=== PATIENT | female | born 1950 | race Caucasian/White ===

== ENCOUNTER → 2018-12-12 19:27 | Outpatient (REF) | payer MEDICARE, OTHER, SELFPAY ==
[2018-12-12 19:51] LABS: Add Manual Diff / Slide Review NO; Basophils Absolute Auto 0 /uL (0-100); Basophils Percent Auto 0.6 % (0-2); Eosinophils Absolute Auto 100 /uL (0-450); Hematocrit 42.9 % (36-46); Hemoglobin 14.3 g/dL (12.0-16.0); Lymphocytes Absolute Auto 1500 /uL (1100-4500); Lymphocytes Percent Auto 38.2 % (25-40); Mean Corpuscular HGB Conc 33.4 % (30-36); Mean Corpuscular Hemoglobin 32.6 PG (26-34); Mean Corpuscular Volume 97.6 fL (80-100); Monocytes Absolute Auto 200 /uL (0-900); Monocytes Percent Auto 6.1 % (3-14); Neutrophils Absolute Auto 2100 /uL (1500-7000); Neutrophils Percent Auto 52.1 % (50-75); Platelet Count 224 X10^3/uL (150-400); Red Blood Cell Count 4.39 X10^6/uL (4.0-5.2); Red Cell Distribution Width 13.2 % (11.6-14.8)
[2018-12-12 20:01] LABS: Alanine Aminotransferase 32 IU/L (9-52); Albumin 4.2 g/dL (3.5-5.0); Albumin Globulin Ratio 1.6 (1.0-2.8); Alkaline Phosphatase 59 U/L (38-126); Aspartate Aminotransferase 24 IU/L (14-36); BUN Creatinine Ratio 21.4 (6-22); Bilirubin Total 0.7 mg/dL (0.2-1.3); Blood Urea Nitrogen 15 mg/dL (7-17); Calcium 8.9 mg/dL (8.4-10.2); Carbon Dioxide 28 mmol/L (22-32); Chloride 105 mmol/L (98-107); Cholesterol 225 mg/dL (140-199); Estimated Glomerular Filt Rate > 60.0 mL/min (>60); Globulin 2.7 g/dL (1.7-4.1); Glucose 104 mg/dL (80-110); HDL Cholesterol 58 mg/dL (40-60); HEMOLYSIS < 15 (0-50); LDL Cholesterol Calculated 148 mg/dL (<100); Potassium 4.3 mmol/L (3.4-5.1); Sodium 139 mmol/L (137-145); Total Protein 6.9 g/dL (6.3-8.2); Triglycerides 94 mg/dL (35-150)
== END ==
LOC: LAB 19:27
PROVIDERS: Visit Provider Family Medicine Geriatric Medicine
DX: Z00.00 Encounter for general adult medical examination without abnormal findings (principal); Z13.220 Encounter for screening for lipoid disorders
CPT/HCPCS: 36415; 80053; 80061; 85025

== ENCOUNTER → 2021-05-16 14:29 | Outpatient (CLI) | payer MEDICARE, SELFPAY ==
[2021-05-16 16:43] LABS: COVID19 -Nasal RAPID Negative (Negative)
== END ==
PROVIDERS: Visit Provider Physician Assistant
DX: Z01.812 Encounter for preprocedural laboratory examination (principal); Z20.822 Contact with and (suspected) exposure to COVID-19
CPT/HCPCS: 87635; C9803

== ENCOUNTER 2021-05-18 10:16 | Day surgery (SDC) | payer MEDICARE, SELFPAY ==
--- NOTE | 2021-05-17 19:36 | PM.PREOP ---
Pre-operative Note COVID-19 COVID-19 status: Negative Interval Note History & Physical reviewed/Exam performed by Physician: Yes Changes to H&P: No
--- NOTE | 2021-05-17 19:37 | PM.OP.1 ---
Operative Date/Time/Diagnoses Date of procedure: 05/18/21 Time of procedure: 12:45 Procedure & Clinicians Procedure: Preoperative diagnoses: 1. Left significant cortical and nuclear sclerotic cataract 2. Astigmatism which is to be corrected with a toric intraocular lens implant. 3. Acid reflux Postoperative diagnoses: 1. Cataract removal with phacoemulsification with toric posterior chamber intraocular lens implant placed. Procedure: Phacoemulsification with posterior chamber toric intraocular lens implant. Surgeon: Madison Laurent MD Complications: None Specimen: None Implant: [id number] [place] 131 Blood loss: None Anesthesia: Retrobulbar with monitored standby Description of procedure: Patient presents with a complaint of decreased vision due to cataract which is affecting activities of daily living especially for driving. The patient wants surgery to improve vision and astigmatism. She understands she will still need glasses to read and for any residual correction. She understands the extra risk of surgery during the COVID-19 epidemic and wishes to proceed. She has tested COVID virus negative within 72 hours of the procedure.. The patient was taken to the operating room and proparacaine drops placed. Indelible ink rankin were placed at the 90 and 180 degree meridian. The patient was placed on the operating room table and given IV sedation. A retrobulbar block insert consisting of 6 cc of 2% xylocaine without epinephrine with 1 cc of hyaluronidase added is placed between the medial and lateral 1/3 of the inferior orbital rim. The eye is manually massaged for 30 sec, prepped using Betadine solution, and draped in the usual sterile fashion. Temporal approach was made, a 1 mm side-port incision was made 90? from the proposed corneal wound. She had a very deep-set brow. Phenylephrine 1.5% mixed with 1% xylocaine 0.2 cc was placed into the anterior chamber. To improve visibility Visudyne capsular dye was used under an air bubble. Viscoat followed by Josey was then placed. A 2.6 mm clear incision with a 2.6 mm blade was placed at the 170 degree meridian. A 360 degree capsulorrhexis style capsulotomy was then performed with a cystitome needle on a Healon. Hydrodelineation and hydrodissection were performed. The phacoemulsification unit is introduced, and sculpting used to groove the central lens. It is then removed in chopping mode. Epi nucleus is removed with epinuclear mode and irrigation aspiration was used to remove the peripheral cortex. The posterior capsule is polished. The intraocular lens is selected, inspected, power confirmed, and placed in the posterior chamber at the desired meridian of 131?. The pupil was not constricted. The wound was stromally hydrated and tested for leaks, there was none and it was left sutureless. Vigamox 0.1 cc was placed into the anterior chamber. Kenalog 0.2 cc was placed in the superior subconjunctival space. A drop of antibiotic and was placed and the eye was patched and shielded. The patient was stable and returned to the recovery room in excellent condition. Dictated by: Madison aLurent MD Copy to: [facility] Same procedure as scheduled: Yes
[2021-05-18] MEDS: PROPARACAINE 0.5% OPHTH SOL 2 DROPS EYE-OP (11:04)
[2021-05-18 11:10] VITALS: BP 164/80; PULSE 84; RESP 16; TEMP 36.5; O2SAT 100; BMI 25.9
[2021-05-18] MEDS: CATARACT EYE COMPOUND (10 DROPS/SYRINGE) 3 DROPS EYE-OP (11:10)
--- NOTE | 2021-05-18 12:09 | SUR.OPER ---
Supine on eye stretcher, head on extension cradle secured with tape. Arms tucked at sides with blanket. Pillow under knees.
[2021-05-18] MEDS: TRYPAN BLUE 0.5 ML SYRINGE INJ (12:14)
[2021-05-18] MEDS: PHENYLEPHRINE/LIDOCAINE VIAL (OR) 0.2 ML EYE-OP (12:14)
[2021-05-18] MEDS: CHONDROIDTIN/SOD HYALURONATE 1.05 ML SYRINGE INTRAOCULA (12:14)
[2021-05-18] MEDS: TRIAMCINOLONE 50 MG/5 ML VIAL INJ (12:15)
[2021-05-18] MEDS: ERYTHROMYCIN OPHTH 1 GM OINT 1 APPLIC EYE-LEFT (12:15)
[2021-05-18] MEDS: MOXIFLOXACIN INJ 4 MG/0.8 ML VIAL 0.5 MG EYE-OP (12:15)
[2021-05-18] MEDS: BALANCED SALT IRRIG SOLN NO.2 500 ML, EPINEPHrine 1 MG IRR (12:15)
[2021-05-18] MEDS: HYALURONATE SODIUM 10 MG/ML SYRINGE INJ (12:15)
[2021-05-18] MEDS: LIDOCAINE 2% 4 ML, BUPIVACAINE 0.5% (PF) 4 ML, HYALURONIDASE 150 UNIT INJ (12:16)
[2021-05-18 12:44] VITALS: BP 127/81; PULSE 70; RESP 16; TEMP 36.7; O2SAT 100
[2021-05-18 13:05] VITALS: BP 130/79; PULSE 71; RESP 16; TEMP 36.6; O2SAT 97
--- NOTE | 2021-05-18 17:02 | SUR.PHASEII ---
Late entry: Transportation delay, pt left unit in stable condition.
== END 2021-05-18 13:10 | disposition home or self-care (01) ==
PROVIDERS: Referring Provider Ophthalmology; Visit Provider Ophthalmology
PROC: (CPT 66984; principal; 2021-05-18 11:45)
DX: H25.812 Combined forms of age-related cataract, left eye (principal); H52.202 Unspecified astigmatism, left eye; K21.9 Gastro-esophageal reflux disease without esophagitis
CPT/HCPCS: 66984; J0171; J2250; J2704; J3010; J3301; J3470; V2787

== ENCOUNTER → 2021-05-30 14:41 | Outpatient (CLI) | payer MEDICARE, SELFPAY ==
[2021-05-30 15:53] LABS: COVID19 -Nasal RAPID Negative (Negative)
== END ==
PROVIDERS: Visit Provider Physician Assistant
DX: Z01.812 Encounter for preprocedural laboratory examination (principal); Z20.822 Contact with and (suspected) exposure to COVID-19
CPT/HCPCS: 87635; C9803

== ENCOUNTER 2021-06-01 12:13 | Day surgery (SDC) | payer MEDICARE, SELFPAY ==
--- NOTE | 2021-05-30 17:41 | PM.PREOP ---
Pre-operative Note COVID-19 COVID-19 status: Negative Interval Note History & Physical reviewed/Exam performed by Physician: Yes Changes to H&P: No
--- NOTE | 2021-05-30 17:41 | PM.OP.1 ---
Operative Date/Time/Diagnoses Date of procedure: 06/01/21 Time of procedure: 12:15 Procedure & Clinicians Procedure: Preoperative diagnoses: 1. Right significant Nuclear sclerotic cataract 2. Astigmatism which is to be corrected with a toric intraocular lens implant. 3. Status post LASIK Postoperative diagnoses: 1. Cataract removal with phacoemulsification with toric posterior chamber intraocular lens implant placed. Procedure: Phacoemulsification with posterior chamber toric intraocular lens implant. Surgeon: Madison Laurent MD Complications: None Specimen: None Implant: [id number] [place] 050 Blood loss: None Anesthesia: Retrobulbar with monitored standby Description of procedure: Patient presents with a complaint of decreased vision due to cataract which is affecting activities of daily living at distance and near. The patient wants surgery to improve vision and astigmatism. She has had successful cataract surgery in her left eye 2 weeks ago and wishes to proceed. She has tested COVID-19 virus negative within 72 hours of the procedure The patient was taken to the operating room and proparacaine drops placed. Indelible ink rankin were placed at the 90 and 180 degree meridian. The patient was placed on the operating room table and given IV sedation. A retrobulbar block insert consisting of 6 cc of 2% xylocaine without epinephrine mixed with 1 cc of hyaluronidase added is placed between the medial and lateral 1/3 of the inferior orbital rim. The eye is manually massaged for 30 sec, prepped using Betadine solution, and draped in the usual sterile fashion. Temporal approach was made, a 1 mm side-port incision was made 90? from the proposed corneal wound. Phenylephrine 1.5% mixed with 1% xylocaine 0.2 cc was placed into the anterior chamber. Due to a poor red reflex an air bubble was placed followed by Visudyne capsular dye. The excess dye was then irrigated out with BSS. EndoCoat followed by Healon was then placed. A 2.6 mm clear incision with a 2.6 mm blade was placed at the 170 degree meridian. A 360 degree capsulorrhexis style capsulotomy was then performed with a cystitome needle on a Healon. Hydrodelineation and hydrodissection were performed. The phacoemulsification unit is introduced, and sculpting used to groove the central lens. It is then removed in chopping mode. Provisc was then placed into the anterior chamber. Epi nucleus is removed with epinuclear mode and irrigation aspiration was used to remove the peripheral cortex. The posterior capsule is polished. The intraocular lens is selected, inspected, power confirmed, and placed in the posterior chamber at the desired meridian of 50?. The pupil was not constricted. The wound was stromally hydrated and tested for leaks, there was none and it was left sutureless. Vigamox 0.1 cc was placed into the anterior chamber. Kenalog 0.2 cc was placed in the superior subconjunctival space. A drop of antibiotic and was placed and the eye was patched and shielded. The patient was stable and returned to the recovery room in excellent condition. Dictated by: Madison Laurent MD Copy to: [facility] Same procedure as scheduled: Yes
--- NOTE | 2021-06-01 12:33 | SUR.OPER ---
Supine on eye stretcher, head on extension cradle secured with tape. Arms tucked at sides with blanket. Pillow under knees.
[2021-06-01] MEDS: CATARACT EYE COMPOUND (10 DROPS/SYRINGE) 3 DROPS EYE-OP (12:38)
[2021-06-01] MEDS: PROPARACAINE 0.5% OPHTH SOL 2 DROPS EYE-OP (12:38)
[2021-06-01 12:44] VITALS: BP 143/68; PULSE 75; RESP 18; TEMP 36.6; O2SAT 100; BMI 25.9
[2021-06-01] MEDS: BALANCED SALT IRRIG SOLN NO.2 500 ML, EPINEPHrine 1 MG IRR (13:50)
[2021-06-01] MEDS: HYALURONATE SODIUM 30 MG-10 MG/ML SYRINGES 1 BOX INTRAOCULA (13:50)
[2021-06-01] MEDS: TRYPAN BLUE 0.5 ML SYRINGE INJ (13:51)
[2021-06-01] MEDS: LIDOCAINE 2% 4 ML, BUPIVACAINE 0.5% (PF) 4 ML, HYALURONIDASE 150 UNIT INJ (13:51)
[2021-06-01] MEDS: PHENYLEPHRINE/LIDOCAINE VIAL (OR) 0.2 ML EYE-OP (13:51)
[2021-06-01] MEDS: TRIAMCINOLONE 50 MG/5 ML VIAL INJ (13:52)
[2021-06-01] MEDS: MOXIFLOXACIN INJ 4 MG/0.8 ML VIAL 0.5 MG EYE-OP (13:52)
[2021-06-01] MEDS: ERYTHROMYCIN OPHTH 1 GM OINT 1 APPLIC EYE-RIGHT (13:54)
[2021-06-01] MEDS: HYALURONATE SODIUM 23 MG/ML SYRINGE INJ (13:55)
--- NOTE | 2021-06-01 14:12 | SUR.OPER ---
Supine on eye stretcher, head on extension cradle secured with tape. Arms tucked at sides with blanket. Pillow under knees.
[2021-06-01 14:26] VITALS: BP 124/74; PULSE 64; RESP 15; TEMP 36.2; O2SAT 100
== END 2021-06-01 14:39 | disposition home or self-care (01) ==
LOC: OR 12:14
PROVIDERS: Referring Provider Ophthalmology; Visit Provider Ophthalmology
PROC: (CPT 66984; principal; 2021-06-01 13:15)
DX: H25.11 Age-related nuclear cataract, right eye (principal); H52.201 Unspecified astigmatism, right eye
CPT/HCPCS: 66984; J0171; J2250; J2704; J3010; J3301; J3470; V2787

== ENCOUNTER → 2022-07-17 12:39 | Outpatient (CLI) | payer MEDICARE, SELFPAY ==
--- NOTE | 2022-07-17 12:42 | DI.MRI.S_ITS ---
PROCEDURE: MR THORACIC SPINE WO CON INDICATIONS: Radiculopathy, cervical region; T8 Fracture TECHNIQUE: Noncontrast sagittal T1 spine echo and T2 fast spin echo, sagittal STIR, and T2 fast spin echo through the thoracic spine. COMPARISON: [facility], , MR CERVICAL SPINE WO CON, 07/17/2022, 13:27. Outside Film, CR, XR THORACIC SPINE 2 VIEWS, 06/05/2022, 11:06. FINDINGS: Image quality: This examination is limited by involuntary motion artifact. Alignment and Curvature: Accentuated thoracic kyphosis is seen. No focal AP alignment abnormality is seen. Bone Marrow: There are anterior wedge deformity seen of T7 and T8. The T7 fracture demonstrates 40-50% loss of height anteriorly. There is mild increased STIR signal seen anteriorly and on the left side. The T8 fracture demonstrates 20-30% loss of height centrally. No significant abnormal STIR signal can be seen. Spinal Cord: Visualized spinal cord is normal in size and signal. Paraspinous Soft Tissues: No paravertebral masses. Miscellaneous: At the T7-T8 level, there is at least moderate bilateral neural foraminal narrowing seen. Milder neural foraminal narrowing is seen elsewhere within the mid thoracic spine. No significant central canal narrowing is seen. Lower cervical spine degenerative changes are seen. IMPRESSION: T7 and T8 fractures, with a subacute fracture of T7 level. (It is acknowledged that these fractures are described as being at T8 and T9 on the outside plain film report.) At least moderate bilateral neural foraminal narrowing can be seen at T7-T8. Dictated by: Lazaro Jolly M.D. on 07/17/2022 at 14:37 Approved by: Lazaro Jolly M.D. on 07/17/2022 at 14:40
--- NOTE | 2022-07-17 13:31 | DI.MRI.S_ITS ---
PROCEDURE: MR CERVICAL SPINE WO CON INDICATIONS: Radiculopathy, cervical region; T8 Fracture TECHNIQUE: Noncontrast sagittal T1 spin echo and T2 fast spin echo, sagittal STIR, foraminal oblique sagittal T2 fast spin echo, and axial gradient echo or T2 fast spin echo through the cervical spine. COMPARISON: None. Reviewed normal cervical spine vertebral body height and alignment. No suspicious focal marrow signal abnormality or bone marrow edema. Normal morphology and signal intensity of the cervical cord. There is no syrinx. Regional prevertebral and paraspinous soft tissues demonstrate no acute finding C2-C3: No spinal canal or neural foraminal stenosis. C3-C4: Mild spinal canal stenosis due to posterior disc osteophyte complex. Mild bilateral neural foraminal narrowing due to facet and uncovertebral hypertrophy. C4-C5: Mild spinal canal stenosis due to posterior disc osteophyte complex. Severe left and moderate right neural foraminal stenosis due to facet and uncovertebral hypertrophy. C5-C6: Moderate spinal canal stenosis due to posterior disc osteophyte complex and buckling of the ligamentum flavum. Facet and uncovertebral hypertrophy contribute to moderate bilateral neural foraminal stenosis. C6-C7: Moderate spinal canal stenosis due to posterior disc osteophyte complex. Severe bilateral neural foraminal narrowing due to facet and uncovertebral hypertrophy. C7-T1: No spinal canal stenosis. Mild right neural foraminal narrowing. IMPRESSION: Multi from level multifactorial degenerative changes as detailed above, worst from C4-C5 through C6-C7. Dictated by: Yung Mac M.D. on 07/17/2022 at 13:59 Approved by: Yung Mac M.D. on 07/17/2022 at 14:05
== END ==
PROVIDERS: PCP Family Medicine; Referring Provider Orthopaedic Surgery; Visit Provider Orthopaedic Surgery
DX: M47.22 Other spondylosis with radiculopathy, cervical region (principal); S22.060S Wedge compression fracture of T7-T8 vertebra, sequela; S22.070S Wedge compression fracture of T9-T10 vertebra, sequela; M48.04 Spinal stenosis, thoracic region
CPT/HCPCS: 72141; 72146

== ENCOUNTER → 2025-09-15 10:49 | Outpatient (CLI) | payer MEDICARE, SELFPAY ==
[2025-09-15 14:47] LABS: Appearance Urine UA CLEAR; Bilirubin Urine UA NEGATIVE (NEGATIVE); Color Urine UA YELLOW; Glucose Urine UA NEGATIVE (Negative); Ketones Urine UA NEGATIVE (NEGATIVE); Leukocyte Esterase Urine UA NEGATIVE (NEGATIVE); Nitrite Urine UA NEGATIVE (Negative); Occult Blood Urine UA TRACE-INTACT (Negative); Protein Urine UA NEGATIVE (Negative); Specific Gravity Urine UA 1.015 (1.000-1.035); Urobilinogen Urine UA 0.2 E.U./dL (0.2)
[2025-09-15 14:58] LABS: pH Urine UA 7.5 (4.5-8.0)
[2025-09-15 15:08] LABS: Culture Indicated Urine Cult Not Indicated
[2025-09-15 15:10] LABS: Other Crystals Urine Other Crystals:
== END ==
PROVIDERS: PCP Family Medicine; Visit Provider Obstetrics & Gynecology Gynecology
DX: N81.11 Cystocele, midline (principal); N32.81 Overactive bladder
CPT/HCPCS: 81001